=== PATIENT | female | born 1950 | race Caucasian/White ===

== ENCOUNTER 2023-12-09 14:02 | Emergency (ER) | payer OTHER ==
--- NOTE | 2023-12-09 14:37 | ER ---
Nurse's Notes [facility] Name: Laney Abdi Age: 73 yrs Sex: Female : 1950 Arrival Date: 12/09/2023 Time: 14:02 Bed 19 Private MD: Diagnosis: Bitten by dog Presentation: 12/08 14:15 Chief complaint: Patient states: Dog bite to L hand on Sunday. Went to Urgent care ll1 , has been on antibiotics. Redness has spread up her arm more, but better overall. Coronavirus screen: Client denies travel out of the [place] in the last 14 days. At this time, the client does not indicate any symptoms associated with coronavirus-19. Ebola Screen: Patient denies travel to an Ebola-affected area in the 21 days before illness onset. Initial Sepsis Screen: Does the patient meet any 2 criteria? No. Patient's initial sepsis screen is negative. Does the patient have a suspected source of infection? No. Patient's initial sepsis screen is negative. Risk Assessment: Do you want to hurt yourself or someone else? Patient reports no desire to harm self or others. Onset of symptoms was December 04, 2023. 14:15 Method Of Arrival: Ambulatory ll1 14:15 Acuity: STIVEN 4 ll1 Triage Assessment: 14:15 General: Appears uncomfortable, Behavior is calm, cooperative, appropriate for age. ll1 Pain: Complains of pain in left arm. Derm: Wound noted left hand Wound is dog bite wounds to L hand. Redness traveling up L FA. Reports pain. Musculoskeletal: Circulation, motion, and sensation intact. Capillary refill < 3 seconds, Reports pain in left arm. Injury Description: Puncture. Historical: - Allergies: 14:15 No Known Allergies; ll1 - PMHx: 14:15 Asthma; ll1 - PSHx: 14:15 section; lap back surgery; ll1 - Immunization history:: Adult Immunizations up to date. - Infectious Disease History:: Denies. - Social history:: Smoking status: Patient denies any tobacco usage or history of. Screenin:36 [facility] ED Fall Risk Assessment (Adult) History of falling in the last 3 months, me1 including since admission No falls in past 3 months (0 pts) Confusion or Disorientation No (0 pts) Intoxicated or Sedated No (0 pts) Impaired Gait No (0 pts) Mobility Assist Device Used No (0 pt) Altered Elimination No (0 pt) Score/Fall Risk Level 0 - 2 = Low Risk Maintained a safe environment, Provided non-skid footwear, Hourly rounding (assess needs \T\ fall precautionary measures) done. Abuse screen: Denies threats or abuse. Nutritional screening: No deficits noted. Tuberculosis screening: No symptoms or risk factors identified. Assessment: 14:36 General: Appears comfortable, well groomed, well developed, well nourished, Behavior is me1 calm, cooperative, appropriate for age, Reports Dog bite to L hand on Sunday. Went to Urgent care , has been on antibiotics. Redness has spread up her arm more, but better overall. Pain: Complains of pain in left hand Pain does not radiate. Pain currently is 2 out of 10 on a pain scale. Quality of pain is described as tender, Pain began suddenly, Is continuous. Neuro: Level of Consciousness is awake, alert, obeys commands, Oriented to person, place, time, situation, Appropriate for age. Cardiovascular: Patient's skin is warm and dry. Respiratory: Airway is patent Respiratory effort is even, unlabored, Respiratory pattern is regular, symmetrical. GI: No signs and/or symptoms were reported involving the gastrointestinal system. : No signs and/or symptoms were reported regarding the genitourinary system. EENT: No signs and/or symptoms were reported regarding the EENT system. Derm: Wound noted left hand Wound is dog bite. Musculoskeletal: No signs and/or symptoms reported regarding the musculoskeletal system. Injury Description: Bite sustained to left hand caused by a dog, is. Vital Signs: 14:15 BP 126 / 88; Pulse 83; Resp 16; Temp 97.6; Pulse Ox 99% ; Weight 61.69 kg; Height 5 ft. ll1 3 in. ; Pain 4/10; 14:38 BP 124 / 86; Pulse 83; Resp 16; Temp 98.1; Pulse Ox 99% ; me1 14:15 Body Mass Index 24.09 (61.69 kg, 160.02 cm) ll1 14:15 Pain Scale: Adult ll1 ED Course: 14:09 Patient arrived in ED. ra3 14:09 Tony Pandey MD is Attending Physician. ec2 14:10 Arm band placed on. ll1 14:17 Triage completed. 1 14:27 Cheli Light, RN is Primary Nurse. mi1 14:36 Patient has correct armband on for positive identification. Bed in low position. Call me1 light in reach. Side rails up X 1. Provided Education on: POC. Verbalized understanding. . 14:36 No provider procedures requiring assistance completed. Patient did not have IV access [facility] during this emergency room visit. Administered Medications: No medications were administered Medication: 14:36 VIS not applicable for this client. me1 Outcome: 14:36 Discharge ordered by MD. ec2 14:42 Discharged to home ambulatory, mi1 14:42 Condition: stable 14:42 Discharge instructions given to patient, Instructed on discharge instructions, follow up and referral plans. Demonstrated understanding of instructions, follow-up care, 14:51 Patient left the ED. 1 Signatures: Shanique Oliva RN RN 1 Cheli Light, RN RN mi1 Tony Pandey MD MD 2 Elizabeth Monzon ra3 Corrections: (The following items were deleted from the chart) 14:36 14:15 Chief complaint: Patient states: Dog bite to L hand on Sunday. Went to Urgent mi1 care , has been on antibiotics. Redness has spread up her arm more, but better overall. 1
--- NOTE | 2023-12-09 14:37 | EDPHYS ---
Physician Documentation [facility] Name: Laney Abdi Age: 73 yrs Sex: Female : 1950 Arrival Date: 12/09/2023 Time: 14:02 Bed 19 Private MD: ED Physician Tony Pandey HPI: 12/08 14:37 This 73 yrs old Female presents to ER via Ambulatory with complaints of Dog ec2 Bite - x2days ago..left wrist swelling. 14:37 Patient arrives today for evaluation of her wound. Was bitten by dog several days ago ec2 on Sunday, states that she was started on antibiotics 2.5 days ago. Patient reports she has persistent erythema which she will prompted evaluation today. Reports no fevers or chills, no nausea or vomiting. Patient reports that the swelling has improved however has dispersed and the redness has also dispersed however intensity of the redness has improved as well. Reports otherwise no other concerns, received a tetanus shot and had negative x-ray.. Historical: - Allergies: 14:15 No Known Allergies; ll1 - PMHx: 14:15 Asthma; ll1 - PSHx: 14:15 section; lap back surgery; ll1 - Immunization history:: Adult Immunizations up to date. - Infectious Disease History:: Denies. - Social history:: Smoking status: Patient denies any tobacco usage or history of. ROS: 14:37 Constitutional: as per hpi ec2 Exam: 14:37 Constitutional: GEN: NAD Head: atraumatic Eyes: EOMI Ears: External ears are ec2 normal. CV: regular rate LUNGS: no respiratory distress ABD: non-distended SKIN: Left wrist with trace erythema, well-healing puncture wounds, no warmth appreciated. MSK: no evidence of trauma Vital Signs: 14:15 BP 126 / 88; Pulse 83; Resp 16; Temp 97.6; Pulse Ox 99% ; Weight 61.69 kg; Height 5 ft. ll1 3 in. ; Pain 4/10; 14:38 BP 124 / 86; Pulse 83; Resp 16; Temp 98.1; Pulse Ox 99% ; me1 14:15 Body Mass Index 24.09 (61.69 kg, 160.02 cm) ll1 14:15 Pain Scale: Adult ll1 MDM: 14:36 Patient medically screened. ec2 14:37 Data reviewed: vital signs. ED course: Patient arrives today for evaluation of her ec2 recent wound. Examination remarkable for hemodynamically stable was otherwise in no acute distress with a reassuring examination with trace erythema noted. Patient Selene reports that her swelling and warmth has since improved, expected to be typical progression of her infection, there is no significant erythema, there is no tachycardia or fever to indicate overwhelming infection. Patient is appropriate to be discharged and follow-up with her PCP. Return precautions given.. Administered Medications: No medications were administered Disposition Summary: 12/09/23 14:36 Discharge Ordered Notes: Location: Home ec2 Condition: Stable ec2 Diagnosis - Bitten by dog ec2 Followup: ec2 - With: Private Physician - When: - Reason: Re-evaluation by your physician Discharge Instructions: - Discharge Summary Sheet ec2 - Animal Bite, Adult, [id number] ec2 Forms: - Medication Reconciliation Form ec2 - Antibiotic Education ec2 - Prescription Opioid Use ec2 - Patient Portal Instructions ec2 - Leadership Thank You Letter ec2 Signatures: Shanique Oliva RN RN 1 Cheli Light RN RN me1 Tony Pandey MD MD ec2
[2023-12-09 15:50] VITALS: O2SAT 99
[2023-12-09 15:52] VITALS: BP 124/86; TEMP 98.1
== END 2023-12-09 14:51 | disposition home or self-care (01) ==
LOC: ER 14:02
DX: S61.532A Puncture wound without foreign body of left wrist, initial encounter (principal); W54.0XXA Bitten by dog, initial encounter